=== PATIENT | female | born 1995 | race Caucasian/White ===

== ENCOUNTER 2016-10-24 10:33 | Emergency (ER) | payer SELFPAY ==
[2016-10-24 10:55] VITALS: BP 107/68
== END 2016-10-24 12:22 | disposition home or self-care (01) ==
LOC: OHEAST 10:33
DX: Z00.00 Encounter for general adult medical examination without abnormal findings (principal)
CPT/HCPCS: 99211; G0463

== ENCOUNTER 2017-07-20 11:19 | Emergency (ER) | payer BC, MEDICAID ==
[2017-07-20 11:40] VITALS: BP 129/87
--- NOTE | 2017-07-20 14:37 | UC ---
Abdominal Pain Female HPI - HPI Summary HPI Summary: Patient complains of lower abdominal pain for 3 days began during intercourse Tuesday night. pain is mostly resolved at this time some pressure and heaviness in pelvis no vaginal discharge is starting to spot - History of Current Complaint Chief Complaint: UCAbdominalPain Stated Complaint: ABD PAIN Time Seen by Provider: 07/20/17 13:04 Hx Obtained From: Patient Hx Last Menstrual Period: spotting today ?: No Onset/Duration: Sudden Onset, Lasting Days - 3 pain is resolving but not quite gone yet still feels pressure in her lower abdomen Timing: Constant Severity Initially: Moderate Severity Currently: Mild Pain Intensity: 4 Pain Scale Used: 0-10 Numeric Location: Suprapubic Radiates: No Character: Cramping Aggravating Factor(s): Nothing Alleviating Factor(s): Nothing Associated Signs and Symptoms: Positive: Negative Allergies/Adverse Reactions: Allergies Allergy/AdvReac Type Severity Reaction Status Date / Time Penicillins Allergy unk Verified 07/20/17 11:43 Sulfa (Sulfonamide Allergy unk Verified 07/20/17 11:43 Antibiotics) PMH/Surg Hx/FS Hx/Imm Hx Previously Healthy: Yes - Surgical History Surgical History: None - Family History Known Family History: Positive: None - Social History Occupation: Student Lives: With Family Alcohol Use: None Substance Use Type: None Smoking Status (MU): Never Smoked Tobacco Have You Smoked in the Last Year: No - Immunization History Vaccination Up to Date: Yes Review of Systems Constitutional: Negative Skin: Negative Eyes: Negative ENT: Negative Respiratory: Negative Cardiovascular: Negative Gastrointestinal: Abdominal Pain Genitourinary: Other - Pelvic pressure no discrete urinary burning urgency or frequency Motor: Negative Neurovascular: Negative Musculoskeletal: Negative Neurological: Negative Psychological: Negative Is Patient Immunocompromised?: No All Other Systems Reviewed And Are Negative: Yes Physical Exam Triage Information Reviewed: Yes Appearance: Well-Appearing, No Pain Distress, Thin Vital Signs: Initial Vital Signs Temp 99.8 F 07/20/17 11:31 Pulse 105 07/20/17 11:31 Resp 16 07/20/17 11:31 BP 129/87 07/20/17 11:31 Pulse Ox 100 07/20/17 11:31 Vital Signs Reviewed: Yes Eye Exam: Normal Eyes: Positive: Conjunctiva Clear ENT Exam: Normal ENT: Positive: Normal ENT inspection, Hearing grossly normal, Pharynx normal, TMs normal. Negative: Nasal congestion, Nasal drainage, Tonsillar swelling, Tonsillar exudate, Trismus, Muffled voice, Hoarse voice Dental Exam: Normal Neck exam: Normal Neck: Positive: Supple, Nontender, No Lymphadenopathy Respiratory Exam: Normal Respiratory: Positive: Chest non-tender, Lungs clear, Normal breath sounds, No respiratory distress, No accessory muscle use Cardiovascular Exam: Normal Cardiovascular: Positive: RRR, No Murmur, Pulses Normal, Brisk Capillary Refill Abdominal Exam: Normal Abdomen Description: Positive: No Organomegaly, Soft. Negative: CVA Tenderness (R), CVA Tenderness (L), Distended, Guarding, Hernia @, Hepatomegaly, McBurney' s Point Tenderness, Peritoneal Signs, Pulsatile Mass, Splenomegaly Bowel Sounds: Positive: Present Musculoskeletal Exam: Normal Musculoskeletal: Positive: Strength Intact, ROM Intact, No Edema Neurological Exam: Normal Neurological: Positive: Alert, Muscle Tone Normal Psychological Exam: Normal Skin Exam: Normal UC Physical Exam Vital Signs On Initial Exam: Initial Vitals Temp Pulse Resp BP Pulse Ox 99.8 F 105 16 129/87 100 07/20/17 11:31 07/20/17 11:31 07/20/17 11:31 07/20/17 11:31 07/20/17 11:31 - Genitalia Exam Female Genitourinary: Normal External Exam, Other - Suprapubic tick tenderness on bimanual exam,no pain with cervical motion, no adnexal pain Diagnostics - Laboratory Diagnostic Studies Completed/Ordered: UA positive for nitrites leukoesterase blood, pelvic ultrasound no free fluid uterus and ovaries within normal limits IUD in place Abd Pain Female Course/Dx - Course Course Of Treatment: Appitma & affirm sent swab for patient, will culture urine. will start on Macrobid. advised patient's increase fluids follow with [facility] or [facility] when necessary. - Differential Dx/Diagnosis Provider Diagnoses: Urinary tract infection Discharge - Sign-Out/Discharge Documenting (check all that apply): Discharge - Discharge Plan Condition: Stable Disposition: HOME Prescriptions: Nitrofurantoin Macrocrystals* [Macrodantin*] 100 mg PO BID #20 cap Patient Education Materials: Phenazopyridine (By mouth), Urinary Tract Infection in Women (ED) Referrals: Damir Ferrari MD [Primary Care Provider] - If Needed - Billing Disposition and Condition Condition: STABLE Disposition: HOME
--- NOTE | 2017-07-20 15:09 | RAD ---
Indication: Pelvic pain, IUD string not identified. Real-time sonography of the pelvis was performed. The uterus measures 7.3 x 3.2 x 5.2 cm. Endometrial echo measures 4 mm. IUD device is in place. The right ovary measures 4.4 x 1.2 x 3.9 cm. Echo complex lesion in the right ovary measures 18 x 12 x 31 mm. Left ovary measures 3.3 x 1.6 x 3.0 cm. No adnexal masses are noted. IMPRESSION: IUD in place. No adnexal masses are noted.
--- NOTE | 2017-07-21 15:05 | PN ---
Progress Note - Progress Note Date of Service: 07/20/17 Note: Patient's vaginal DNA positive for Gardnerella She was not placed on Flagyl prior to discharge She is ordered Flagyl 500 mg twice a day 7 days Patient will be called by nursing staff to make aware of medication Nothing further at this time
--- NOTE | 2017-07-22 15:07 | UC ---
- Progress Note Progress Note: Urine culture with e. coli. Sensitive to macrobid. No change. Discharge - Sign-Out/Discharge Documenting (check all that apply): Post-Discharge Follow Up - Discharge Plan Prescriptions: metroNIDAZOLE [Flagyl] 500 mg PO BID #14 tablet Nitrofurantoin Macrocrystals* [Macrodantin*] 100 mg PO BID #20 cap Referrals: Damir Ferrari MD [Primary Care Provider] - If Needed
== END 2017-07-20 15:23 | disposition home or self-care (01) ==
LOC: UCEAST 11:19
DX: N39.0 Urinary tract infection, site not specified (principal); B96.20 Unspecified Escherichia coli [E. coli] as the cause of diseases classified elsewhere; N76.0 Acute vaginitis; B96.89 Other specified bacterial agents as the cause of diseases classified elsewhere; Z32.02 Encounter for pregnancy test, result negative; Z88.0 Allergy status to penicillin; Z88.2 Allergy status to sulfonamides
CPT/HCPCS: 76830; 81003; 84702; 87077; 87086; 87186; 87480; 87491; 87510; 87591; 87661; 99212; G0463

== ENCOUNTER 2017-10-20 12:42 | Emergency (ER) | payer BC, MEDICAID ==
[2017-10-20 13:13] VITALS: BP 99/66
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
--- NOTE | 2017-10-20 14:06 | RAD ---
Indication: Left hand pain. 4 views of left hand demonstrates no fracture. No other bone or joint abnormality is identified. The proximal and distal interphalangeal joints are unremarkable. IMPRESSION: No fracture of the left hand is noted.
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
== END 2017-10-20 14:30 | disposition home or self-care (01) ==
LOC: UCEAST 12:42
DX: S60.222A Contusion of left hand, initial encounter (principal); W51.XXXA Accidental striking against or bumped into by another person, initial encounter; Y93.9 Activity, unspecified; Y92.9 Unspecified place or not applicable; Z88.0 Allergy status to penicillin; Z88.2 Allergy status to sulfonamides; Z83.3 Family history of diabetes mellitus; Z82.0 Family history of epilepsy and other diseases of the nervous system
CPT/HCPCS: 99213; G0463

== ENCOUNTER 2018-01-24 18:52 | Emergency (ER) | payer BC, OTHER ==
[2018-01-24 19:09] VITALS: BP 130/78
[2018-01-24] MEDS ORDERED: Ipratropium 0.5MG/2.5ML NEB* 0.5 MG/2.5 ML NEB.SOLN INH ONE (19:14)
[2018-01-24] MEDS ORDERED: Albuterol 2.5 MG/3 ML NEB.SOL* (0.083%) INH ONE (19:14)
[2018-01-24] MEDS ORDERED: predniSONE TAB* 20 MG PO ONE (19:15)
--- NOTE | 2018-01-24 19:19 | UC ---
Respiratory Complaint HPI - HPI Summary HPI Summary: About one week of cough, congestion, sore throat. Has had subjective fever for the past 2 days. Feels short of breath and wheezy. Has a history of asthma. Has been using her albuterol inhaler with no relief. - History of Current Complaint Chief Complaint: UCRespiratory Stated Complaint: CHEST CONGESTION Time Seen by Provider: 01/24/18 19:10 Hx Obtained From: Patient Hx Last Menstrual Period: iud Onset/Duration: Gradual Onset, Lasting Days, Still Present Timing: Constant Severity Initially: Moderate Severity Currently: Moderate Pain Intensity: 2 Pain Scale Used: 0-10 Numeric Character: Cough: Nonproductive Aggravating Factors: Nothing Alleviating Factors: Nothing Associated Signs And Symptoms: Positive: Dyspnea, Fever, Wheezing, Nasal Congestion - Allergies/Home Medications Allergies/Adverse Reactions: Allergies Allergy/AdvReac Type Severity Reaction Status Date / Time Penicillins Allergy unk Verified 01/24/18 19:00 Sulfa (Sulfonamide Allergy unk Verified 01/24/18 19:00 Antibiotics) Home Medications: Home Medications Albuterol HFA INHALER* [Ventolin HFA Inhaler*] 1 puff INH Q4H PRN 01/24/18 [ History Confirmed 01/24/18] Ibuprofen 400 mg PO Q8HR PRN 01/24/18 [History Confirmed 01/24/18] Iud 01/24/18 [History] Pseudoephedrine HCl [Sudafed] 30 mg PO Q8HR PRN 01/24/18 [History Confirmed ] PMH/Surg Hx/FS Hx/Imm Hx Respiratory History: Asthma Psychological History: Anxiety - Surgical History Surgical History: None - Family History Known Family History: Positive: Diabetes, Seizure Disorder - Social History Alcohol Use: None Substance Use Type: None Smoking Status (MU): Never Smoked Tobacco Have You Smoked in the Last Year: No - Immunization History Vaccination Up to Date: Yes Review of Systems Constitutional: Fever ENT: Sore Throat, Nasal Discharge Respiratory: Shortness Of Breath, Cough, Other - WHEEZE Cardiovascular: Negative Gastrointestinal: Negative All Other Systems Reviewed And Are Negative: Yes Physical Exam Triage Information Reviewed: Yes Appearance: Well-Appearing, No Pain Distress, Well-Nourished Vital Signs: Initial Vital Signs Temp 99.7 F 01/24/18 19:02 Pulse 101 01/24/18 19:02 Resp 24 01/24/18 19:02 BP 130/78 01/24/18 19:02 Pulse Ox 98 01/24/18 19:02 Vital Signs Reviewed: Yes Eyes: Positive: Conjunctiva Clear ENT: Positive: Hearing grossly normal, Pharynx normal, TMs normal Neck: Positive: Supple, Nontender, No Lymphadenopathy Respiratory: Positive: No respiratory distress, No accessory muscle use, Decreased breath sounds, Wheezing - DIFFUSE Cardiovascular Exam: Normal Abdomen Description: Positive: Soft Musculoskeletal: Positive: No Edema Neurological: Positive: Alert Psychological: Positive: Age Appropriate Behavior Skin: Negative: rashes UC Diagnostic Evaluation - Laboratory O2 Sat by Pulse Oximetry: 98 Re-Evaluation - Re-Evaluation First Eval Re-Evaluation Time: 19:50 - FEELING BETTER AFTER PREDNISONE AND DUONEB. STILL WHEEXING BUT MOVING MORE AIR Change: Improved Respiratory Course/Dx - Course Course Of Treatment: PT WITH ASTHMA EXACERBATION LIKELY TRIGGERED BY ALLERGIES AND ACUTE URI. PREDNISONE, ALBUTEROL AND AZITH. F/U PCP IF NEEDED. TO ER IF SX WORSEN. - Differential Dx/Diagnosis Provider Diagnoses: ASTHMA EXACERBATION Discharge - Sign-Out/Discharge Documenting (check all that apply): Patient Departure All imaging exams completed and their final reports reviewed: No Studies - Discharge Plan Condition: Stable Disposition: HOME Prescriptions: Azithromycin 500 mg PO DAILY #5 tab predniSONE TAB* [Deltasone 20 MG TAB*] 40 mg PO DAILY #8 tab Patient Education Materials: Asthma (ED) Referrals: Damir Ferrari MD [Primary Care Provider] - Additional Instructions: YOU FELT IMPROVED AFTER PREDNISONE AND A DUONEB TREATMENT. CONTINUE TO USE YOUR ALBUTEROL INHALER AT HOME NEEDED. CONTINUE PREDNISONE DAILY FOR 4 MORE DAYS. WILL GIVE AZITHROMYCIN ONCE DAILY FOR 5 DAYS TO COVER FOR ANY INFECTIOUS COMPONENT. CONTINUE YOUR ANTIHISTAMINE FOR ALLERGIES. FOLLOW-UP WITH YOUR PCP IF YOU'RE NOT IMPROVING EXPECTED. GO TO THE ED WITHOUT FAIL IF YOU DEVELOP FEVER, WORSENING SHORTNESS OF BREATH OR ANY OTHER CONCERNING SYMPTOMS. - Billing Disposition and Condition Condition: STABLE Disposition: Home
== END 2018-01-24 20:00 | disposition home or self-care (01) ==
LOC: UCEAST 18:52
DX: J45.901 Unspecified asthma with (acute) exacerbation (principal); Z88.0 Allergy status to penicillin; Z88.2 Allergy status to sulfonamides
CPT/HCPCS: 99202; G0463; J7512